=== PATIENT | male | born 1960 | race Caucasian/White ===

== ENCOUNTER 2017-09-04 08:25 | Outpatient (CLI) | payer OTHER ==
--- NOTE | 2017-09-04 18:03 | MRI Report ---
EXAM: RIGHT ANKLE/HINDFOOT MRI WITHOUT CONTRAST EXAM DATE: 09/04/2017 09:33 AM. CLINICAL HISTORY: Right ankle pain. COMPARISON: Right ankle 3 views 08/21/2017. TECHNIQUE: Multiplanar, multisequence T1-weighted and fluid-sensitive sequences of the ankle/hindfoot without contrast. Other: None. FINDINGS: Bones: Moderate spurring lateral aspect distal anterior tibia. Accessory navicular bone. Negative for accessory navicular bone navicular synchondrosis osteochondritis. Articular Cartilage: Unremarkable. Ligaments: The anterior and posterior tibiofibular, anterior and posterior talofibular, and calcaneof ibular ligaments are intact. The deep and superficial deltoid and spring ligaments are intact. Anterior Tendons: The tibialis anterior, extensor hallucis longus, and extensor digitorum longus tend ons are unremarkable. Medial Tendons: The tibialis posterior, flexor digitorum longus, and flexor hallucis longus tendons a re unremarkable. Lateral Tendons: Mild tenosynovitis proximal peroneus longus tendon. Peroneus longus tendon tenosynov itis between the calcaneus peroneal tubercle and undersurface cuboid. Achilles Tendon: The Achilles tendon is unremarkable. Musculature: No edema or fatty atrophy. Other: No effusions. The contents of the sinus tarsi and tarsal tunnel are unremarkable. Mild fusifor m focal thickening mid medial plantar aponeurosis. The subcutaneous tissues are unremarkable. The per emanuel tendons are deep to the lateral skin marker corresponding to the area of pain with no peroneal tendon tear identified. IMPRESSION: Mild tenosynovitis proximal and distal peroneus longus tendon. [facility] MUSCULOSKELET[facility] SECTION Referring Provider Line: [phone] SITE ID: [id number]
== END 2017-09-04 08:26 | disposition home or self-care (01) ==
LOC: DI 08:25
PROVIDERS: ATTEND Family Medicine
DX: M65.871 Other synovitis and tenosynovitis, right ankle and foot (principal)

== ENCOUNTER 2018-01-08 08:59 | Outpatient (CLI) | payer OTHER ==
[~2018-01-08 08:59] MED LIST: GADOPENTETATE DIMEGLUMINE 5 ML VIAL IVP ONE; IOTHALAMATE MEGLUMINE 50 ML VIAL ONE
[2018-01-08] MEDS ORDERED: IOTHALAMATE MEGLUMINE 50 ML VIAL IVP ONE (10:42)
[2018-01-08] MEDS ORDERED: GADOPENTETATE DIMEGLUMINE 5 ML VIAL IVP ONE (10:42)
[2018-01-08] MEDS ORDERED: BUFFERED LIDOCAINE 10 ML SYRINGE IU ONE (10:42)
--- NOTE | 2018-01-08 15:46 | XRAY Report ---
Procedure Date: 01/08/2018 Accession Number: [id number] / [id number] Procedure: FL - Arthrogram Needle Placement CPT Code: FULL RESULT: EXAM: Arthrogram Needle Placement DATE: 01/08/2018 10:45 AM CLINICAL HISTORY: Left shoulder pain COMPARISON: None. TECHNIQUE: The risks, benefits, and alternatives of the procedure were discussed with the patient. All questions were answered. Written and verbal consent were obtained. The left glenohumeral joint was marked under fluoroscopy and prepped and draped in a sterile manner. Local anesthesia was performed with 1% lidocaine. A 22-gauge needle was then inserted into the glenohumeral joint. 12 mL of a solution containing 50% 1% lidocaine, 50% iodinated contrast, and 0.1 mL gadolinium contrast were then injected. The needle was removed without immediate complication. Other: None. Fluoroscopic exposure time: 51 seconds Number of fluoroscopic images: 1. Injection: Fluoroscopic images demonstrate needle placement and contrast in the left glenohumeral joint. No contrast extravasation outside of the glenohumeral joint. IMPRESSION: Successful fluoroscopically guided arthrographic injection of the left shoulder. [facility] COMPARISON: None FINDINGS: IMPRESSION:
--- NOTE | 2018-01-08 19:32 | MRI Report ---
Procedure Date: 01/08/2018 Accession Number: [id number] / [id number] Procedure: MRI - Arthrogram Shoulder LT CPT Code: FULL RESULT: EXAM: LEFT SHOULDER MRI ARTHROGRAM WITH CONTRAST EXAM DATE: 01/08/2018 10:59 AM. CLINICAL HISTORY: Chronic left shoulder pain. Evaluate for rotator cuff tear. COMPARISON: Left shoulder 3 views 08/21/2017. TECHNIQUE: Multiplanar, multisequence T1-weighted and fluid-sensitive sequences of the shoulder after an arthrographic injection of dilute gadolinium, dictated under a separate exam. Other: None. FINDINGS: Acromioclavicular Region: The acromion is type II. The acromioclavicular joint is unremarkable. The coracoacromial and coracoclavicular ligaments are intact. There is no contrast or fluid in the subacromial/subdeltoid bursa. Bone Marrow: No fracture, marrow edema or bone lesions. Labrum: The labrum is unremarkable. Biceps Tendon: The long head of the biceps tendon and biceps yumiko are intact. Musculature/Rotator Cuff: Negative for complete rotator cuff tear. Distal supraspinatus tendinosis. Possible small 1 mm thick 5 mm in greatest dimension and partial tear undersurface distal infraspinatus tendon. Possible small 2 mm partial undersurface tear distal anterior supraspinatus tendon (image 8 series 701). No edema or fatty atrophy. Partial undersurface tear contrast signal distal subscapularis tendon 1.3 cm in height, 1.4 cm in length and 3 mm in thickness (image 15 series 901). Other: The subcutaneous tissues are unremarkable. IMPRESSION: 1. Negative for complete rotator cuff tear. 2. Probable partial undersurface tear subscapularis tendon, 3 mm in thickness, 1.3 cm in height and 1.4 cm in length. [facility] MUSCULOSKELET[facility]IOLOGY SECTION
== END 2018-01-08 09:00 | disposition home or self-care (01) ==
LOC: DI 08:59
PROVIDERS: ATTEND Orthopaedic Surgery
DX: M75.102 Unspecified rotator cuff tear or rupture of left shoulder, not specified as traumatic (principal)
CPT/HCPCS: 23350; 73222; 77002; Q9961

== ENCOUNTER 2018-03-12 08:31 | Outpatient (CLI) | payer OTHER ==
--- NOTE | 2018-03-12 19:36 | MRI Report ---
Procedure Date: 03/12/2018 Accession Number: [id number] / [id number] Procedure: MRI - Cervical Spine W/O CPT Code: FULL RESULT: EXAM: MRI CERVICAL SPINE WITHOUT CONTRAST EXAM DATE: 03/12/2018 10:02 AM. CLINICAL HISTORY: CERVICAL DISC DISEASE WITH MYELOPATHY. COMPARISONS: None. TECHNIQUE: Multiplanar, multisequence T1-weighted and fluid-sensitive sequences of the cervical spine without contrast. Other: None. FINDINGS: Neurologic Structures: The visualized posterior fossa structures are unremarkable. No signal abnormality in the visualized spinal cord. Alignment: No scoliosis or spondylolisthesis. Bone Marrow: No gross fractures or bone lesions. No marrow edema. Interspace Levels/Facets: The craniocervical junction is unremarkable. C1-C2: Mild arthritic changes between the anterior arch of C1 and the odontoid. No stenoses. C2-C3: Ankylosis at the right facet joint. No stenoses. C3-C4: Small posterior central disk protrusion. Minimal canal narrowing. Small uncovertebral joint osteophytes. Mild left and [id number] right facet arthropathy. Moderate right and mild left foraminal stenoses. C4-C5: Mild facet arthropathy. Tiny posterior central disk protrusion. Mild right foraminal stenosis. C5-C6: Small posterior central right paracentral disk protrusion/osteophyte complex. Mild left facet arthropathy. Mild canal stenosis. Mild right foraminal stenosis. C6-C7: Metallic fusion hardware within the C6 and C7 vertebral bodies. Intervertebral fusion device within the disk space. Bony fusion between the C6 and C7 vertebral bodies. No stenoses. C7-T1: Tiny posterior right paracentral disk protrusion. Mild facet arthropathy. Mild right foraminal stenosis. Musculature: Normal. No edema or fatty atrophy. Other: The paravertebral and prevertebral soft tissues are normal. IMPRESSION: 1. Mild multilevel degenerative disk changes, facet arthropathy, and osteophytosis. 2. Moderate right and mild left foraminal stenoses at C3-C4. Small posterior central disk protrusion. Minimal canal narrowing. 3. Previous anterior fusion and diskectomy at C6-C7. [facility]
== END 2018-03-12 08:32 | disposition home or self-care (01) ==
LOC: DI 08:31
PROVIDERS: ATTEND Family Medicine
DX: M50.00 Cervical disc disorder with myelopathy, unspecified cervical region (principal); M48.02 Spinal stenosis, cervical region; M50.03 Cervical disc disorder with myelopathy, cervicothoracic region; M25.78 Osteophyte, vertebrae
CPT/HCPCS: 72141

== ENCOUNTER 2020-05-11 10:33 | Outpatient (CLI) | payer OTHER ==
[2020-05-11 19:06] LABS: BASOPHILS # (AUTO) 0.1 10^3/uL (0.0-0.1); EOSINOPHILS # (AUTO) 0.3 10^3/uL (0.0-0.7); HGB - HEMOGLOBIN 15.7 g/dL (14.0-18.0); LYMPHOCYTES # (AUTO) 2.6 10^3/uL (1.5-3.5); LYMPHOCYTES % (AUTO) 38.1 %; MEAN CORPUSCULAR HEMOGLOBIN 30.6 pg (27.0-31.0); MEAN CORPUSCULAR HGB CONC 32.6 g/dL (32.0-36.0); MEAN PLATELET VOLUME 11.7 fL (7.4-11.4); MONOCYTES # (AUTO) 0.6 10^3/uL (0.0-1.0); MONOCYTES % (AUTO) 9.1 %; NEUTROPHILS # (AUTO) 3.1 10^3/uL (1.5-6.6); NEUTROPHILS % (AUTO) 45.9 %; PLT - PLATELET COUNT 254 10^3/uL (130-450); RED BLOOD COUNT 5.13 10^6/uL (4.70-6.10); RED CELL DISTRIBUTION WIDTH 12.5 % (12.0-15.0); WHITE BLOOD COUNT 6.8 x10^3/uL (4.8-10.8)
[2020-05-11 19:33] LABS: ALBUMIN 4.1 g/dL (3.2-5.5); ALBUMIN/GLOBULIN RATIO 1.4 (1.0-2.2); ALKALINE PHOSPHATASE 58 IU/L (42-121); ALT ALANINE AMINOTRANSFERASE 31 IU/L (10-60); AST ASPARTATE AMINOTRANSFERASE 25 IU/L (10-42); BILIRUBIN,TOTAL 0.9 mg/dL (0.2-1.0); BUN - BLOOD UREA NITROGEN 16 mg/dL (6-20); CALCIUM 9.6 mg/dL (8.5-10.3); CARBON DIOXIDE - CO2 27 mmol/L (21-32); CHLORIDE 102 mmol/L (101-111); CHOL/HDL RATIO 5.1 (<5.0); CHOLESTEROL 235 mg/dL; CREATININE 1.2 mg/dL (0.6-1.2); GLUCOSE 89 mg/dL (70-100); HDL CHOLESTEROL 46 mg/dL; LDL CHOLESTEROL,CALCULATED 136 mg/dL; SODIUM 139 mmol/L (135-145); VLDL CHOLESTEROL 53 mg/dL
== END 2020-05-11 23:59 ==
LOC: LAB.WCP 10:33
PROVIDERS: ATTEND Family Medicine
DX: Z00.00 Encounter for general adult medical examination without abnormal findings (principal)
CPT/HCPCS: 36415; 80053; 80061; 83721; 84153; 85025

== ENCOUNTER 2020-08-18 10:51 | Day surgery (SDC) | payer OTHER ==
[2020-08-18] MEDS ORDERED: LACTATED RINGERS 1,000 ML IV ONE ×2 (11:33→14:21)
[2020-08-18] MEDS ORDERED: MIDAZOLAM 2 MG/2 ML VIAL ONE ×3 (13:24→14:00)
[2020-08-18] MEDS ORDERED: fentaNYL 250 MCG/5 ML VIAL ONE (13:24)
--- NOTE | 2020-08-18 13:28 | HISTORY & PHYSICAL EXAMINATION ---
Chief Complaint - Chief Complaint Chief Complaint: history colon polyp History of Present Illness - History Obtained From Records Reviewed: yes History obtained from: patient Exam Limitations: none - History of Present Illness HPI Comment/Other: History colonoscopy 2014. One small rectal adenoma removed. History - Past Medical History Cardiovascular: reports: None Respiratory: reports: None Endocrine/Autoimmune: reports: None GI: reports: None : reports: None Psych: reports: None Musculoskeletal: reports: Chronic back pain Derm: reports: None MRSA Hx?: No Meds/Allgy - Home Medications Home Medications: Ambulatory Orders Medication Instructions Recorded Confirmed No Known Home Medications 08/26/14 08/17/20 - Allergies Allergies/Adverse Reactions: Allergies Allergy/AdvReac Type Severity Reaction Status Date / Time erythromycin base Allergy Unknown Verified 08/26/14 14:34 Review of Systems - Constitutional Constitutional: reports: Fatigue (pt ros as above otherwise unremarkable) Exam - Vital Signs Reviewed Vital Signs: Yes Vital Signs: Vital Signs x48h Temp Pulse Resp BP Pulse Ox 08/18/20 11:11 36.8 C 76 16 142/86 H 95 - Physical Exam General Appearance: positive: Alert Eyes Bilateral: positive: Normal inspection, PERRL, EOMI Neck: positive: No JVD, Trachea midline Respiratory: positive: No respiratory distress Cardiovascular: positive: Regular rate & rhythm Abdomen: positive: Non-tender, No distention Neurologic/Psychiatric: positive: Oriented x3 Conclusion/Plan - Problem List (1) History of adenomatous polyp of colon Conclusion/Plan: plan surveillance colonoscopy. parq held and consent obtained
[2020-08-18 14:32] VITALS: BP 138/96
== END 2020-08-18 10:52 | disposition home or self-care (01) ==
LOC: SDS 10:51
PROVIDERS: ATTEND Surgery
PROC: 0DBP8ZZ Excision of Rectum, Via Natural or Artificial Opening Endoscopic (ICD-10-PCS; principal; 2020-08-18 12:30)
DX: Z12.11 Encounter for screening for malignant neoplasm of colon (principal); D12.8 Benign neoplasm of rectum; K57.30 Diverticulosis of large intestine without perforation or abscess without bleeding
CPT/HCPCS: 45380; J3010; J7120

== ENCOUNTER 2021-05-12 10:16 | Outpatient (CLI) | payer OTHER ==
--- NOTE | 2021-05-12 13:21 | XRAY Report ---
PROCEDURE: Knee 3 View RT INDICATIONS: RIGHT KNEE PAIN TECHNIQUE: 3 views of the right knee(s) were acquired. COMPARISON: None. FINDINGS: Bones: No fractures or dislocations. No suspicious bony lesions. There is minimal to mild medial femorotibial joint space narrowing, with associated degenerative burns ge with subchondral sclerosis and osteophyte formation. Milder degenerative changes are seen elsewher e. Soft tissues: No significant joint effusion. No suspicious soft tissue calcifications. IMPRESSION: Mild degenerative change can be seen by plain film, which is worst within the medial fem orotibial compartment. If there is strong clinical concern for internal derangement of the knee, please consider a dedicated , scheduled knee MRI for further evaluation (assuming that there is no contraindication). Reviewed by: Tomy Benz MD on 05/12/2021 12:20 PM [facility] Approved by: Tomy Benz MD on 05/12/2021 12:20 PM [facility] Station ID: [id number]
== END 2021-05-12 23:59 ==
LOC: DI.N 10:16
PROVIDERS: ATTEND Family Medicine
DX: M17.11 Unilateral primary osteoarthritis, right knee (principal)

== ENCOUNTER 2023-06-06 07:46 | Outpatient (CLI) | payer OTHER ==
[2023-06-06 13:01] LABS: BASOPHILS # (AUTO) 0.1 10^3/uL (0.0-0.1); BASOPHILS % (AUTO) 0.9 %; EOSINOPHILS # (AUTO) 0.3 10^3/uL (0.0-0.7); EOSINOPHILS % (AUTO) 3.4 %; HGB - HEMOGLOBIN 16.9 g/dL (14.0-18.0); LYMPHOCYTES # (AUTO) 2.1 10^3/uL (1.5-3.5); LYMPHOCYTES % (AUTO) 23.2 %; MEAN CORPUSCULAR HEMOGLOBIN 30.6 pg (27.0-31.0); MEAN CORPUSCULAR HGB CONC 33.1 g/dL (32.0-36.0); MEAN CORPUSCULAR VOLUME 92.2 fL (80.0-94.0); MEAN PLATELET VOLUME 11.6 fL (7.4-11.4); MONOCYTES # (AUTO) 0.6 10^3/uL (0.0-1.0); MONOCYTES % (AUTO) 6.5 %; NEUTROPHILS # (AUTO) 5.8 10^3/uL (1.5-6.6); NEUTROPHILS % (AUTO) 65.3 %; PLT - PLATELET COUNT 290 10^3/uL (130-450); RED BLOOD COUNT 5.53 10^6/uL (4.70-6.10); RED CELL DISTRIBUTION WIDTH 11.9 % (12.0-15.0); WHITE BLOOD COUNT 8.9 x10^3/uL (4.8-10.8)
[2023-06-06 13:21] LABS: ALBUMIN 4.7 g/dL (3.2-5.5); ALBUMIN/GLOBULIN RATIO 1.8 (1.0-2.2); ALKALINE PHOSPHATASE 65 IU/L (42-121); ALT ALANINE AMINOTRANSFERASE 29 IU/L (10-60); AST ASPARTATE AMINOTRANSFERASE 24 IU/L (10-42); BILIRUBIN,TOTAL 0.8 mg/dL (0.2-1.0); BUN - BLOOD UREA NITROGEN 17 mg/dL (6-20); CALCIUM 9.9 mg/dL (8.5-10.3); CARBON DIOXIDE - CO2 29 mmol/L (21-32); CHLORIDE 103 mmol/L (101-111); CHOL/HDL RATIO 4.8 (<5.0); CHOLESTEROL 230 mg/dL; CREATININE 1.2 mg/dL (0.6-1.3); CRP - C-REACTIVE PROTEIN < 0.5 mg/dL (<0.5); GFR - MDRD 62 (>89); GLUCOSE 114 mg/dL (74-104); HDL CHOLESTEROL 48 mg/dL; LDL CHOLESTEROL,CALCULATED 137 mg/dL; LDL/HDL RATIO 2.9 (<3.6); POTASSIUM 4.4 mmol/L (3.5-4.5); SODIUM 138 mmol/L (135-145); TOTAL PROTEIN 7.3 g/dL (6.4-8.9); TRIGLYCERIDES 225 mg/dL (48-352); URIC ACID 7.8 mg/dL (4.4-7.6); VLDL CHOLESTEROL 45 mg/dL
[2023-06-06 13:35] LABS: RHEUMATOID FACTOR NEGATIVE (Negative)
[2023-06-06 13:37] LABS: THYROID STIMULATING HORMONE 1.08 uIU/mL (0.34-5.60)
[2023-06-07 16:07] LABS: ANTI-DNA (DS) AB QN 2 IU/mL (0-9)
[2023-06-10 16:08] LABS: ANTINUCLEAR ANTIBODIES IFA Negative (.)
[2023-06-10 17:08] LABS: CYCLIC CITRULLINATED PEP IGG/A 1 units (0-19)
== END 2023-06-06 07:47 | disposition home or self-care (01) ==
LOC: LAB.N 07:46
PROVIDERS: ATTEND Nurse Practitioner
DX: E29.1 Testicular hypofunction (principal); M19.90 Unspecified osteoarthritis, unspecified site; Z12.5 Encounter for screening for malignant neoplasm of prostate; R53.83 Other fatigue
CPT/HCPCS: 36415; 80050; 80061; 83721; 84153; 84403; 84550; 85651; 86038; 86140; 86200; 86225; 86430

== ENCOUNTER 2023-12-23 15:40 | Outpatient (CLI) | payer OTHER | END 2023-12-23 15:41 | disposition home or self-care (01) | LOC: LAB.N 15:40 | PROVIDERS: ATTEND Nurse Practitioner | DX: E29.1 Testicular hypofunction (principal) | CPT/HCPCS: 36415; 84403 ==